=== PATIENT | female | born 1965 | race Caucasian/White ===

== ENCOUNTER → 2016-06-15 | Day surgery (SDC) | payer OTHER ==
[~2016-06-15] VITALS: Ht 160 cm; Wt 93.0 kg
--- NOTE | 2016-06-15 08:38 | Operative Report ---
Operative/Inv Procedure Report Surgery Date: 06/15/16 Name of Procedure: Left ESWL Pre-Operative Diagnosis: left renal stones Post-Operative Diagnosis: same Estimated Blood Loss: scant Surgeon/Medical Associate: IGLESIA URIBE MD Anesthesia: local monitored anesthesi Complications: none Condition: stable Operative Indication: left renal stones with renal colic Operative/Procedure Note Note: Shannon Torres identified in the holding area. She was consented for left extracorporeal shockwave lithotripsy after the risks, benefits and alternatives were given. All questions were answered. Pt was taken to the operating room and placed on the operating room in the supine position. Time out was performed and IV kefzol 2gm was given. The stones were localized via Renal US and two stones were seen in the renal pelvis. She was placed under sedation anesthesia. The stones were shocked with 2500shocks and the pre and post images were changed after the ESWL. Patient tolerated the procedure well. Findings: two renal stones fragmented after the ESWL Discharge Disposition: Same Day Admissions
== END ==
LOC: STS 04:38
DX: N20.0 Calculus of kidney (principal); K21.9 Gastro-esophageal reflux disease without esophagitis
CPT/HCPCS: 81025; J0690; J1885; J2250